=== PATIENT | female | born 1940 | race Caucasian/White ===

== ENCOUNTER 2022-04-15 18:45 | Emergency (ER) | payer MEDICARE, OTHER ==
[2022-04-15] MEDS ORDERED: Sodium Chloride 0.9% 10 ML Syringe FLUSH PRN (19:08)
[2022-04-15] MEDS ORDERED: Sodium Chloride 0.9% 1,000 ML IV ONE (19:13)
[2022-04-15] MEDS ORDERED: Ondansetron 4 MG/2 ML SDV IVPUSH ONE (19:14)
[2022-04-15] MEDS ORDERED: HYDROmorphone 0.5 MG/0.5 ML Syringe IVPUSH ONE (19:14)
[2022-04-15] MEDS ORDERED: Iopamidol 612 MG/ML 100 ML Bottle IVPUSH ONE (19:24)
[2022-04-15 19:47] LABS: ANION GAP 14.1 mEq/L (7-13); CHLORIDE,CL 100 mmol/L (98-107); SODIUM,NA 136 mmol/L (136-145)
[2022-04-15 19:52] LABS: ESTIMATED GFR 43 mL/min (>=60)
== END 2022-04-15 20:45 | disposition home or self-care (01) ==
LOC: DL.ED 18:45
DX: R07.81 Pleurodynia (principal); R11.0 Nausea; M54.2 Cervicalgia; Z20.822 Contact with and (suspected) exposure to COVID-19; W10.8XXA Fall (on) (from) other stairs and steps, initial encounter
CPT/HCPCS: 36415; 70450; 71260; 72125; 72128; 72131; 74177; 80053; 85025; 93005; 93010; 96361; 96374; 96375; 99282; 99284-25; J1170; J2405; J3490; J7030; Q9967; U0002